=== PATIENT | male | born 1990 | race Caucasian/White ===

== ENCOUNTER 2022-07-13 06:48 | Day surgery (SDC) | payer OTHER ==
[~2022-07-13] VITALS: Ht 177.8 cm; Wt 74.8 kg
[~2022-07-13 06:48] MED LIST: TAMS-11 PO
[2022-07-13] MEDS ORDERED: LACTATED RINGERS 1,000 ML IV SCH (07:00)
[2022-07-13] MEDS ORDERED: DEXAMETHASONE 4MG/ML 1ML VIAL ONE ×2 (08:47→10:36)
[2022-07-13] MEDS ORDERED: METOCLOPRAMIDE HCL 10MG/2ML VIAL ONE (08:47)
[2022-07-13] MEDS ORDERED: ONDANSETRON HCL 4MG/2ML INJ ONE (08:47)
[2022-07-13] MEDS ORDERED: LIDOCAINE HCL 1% 20ML VIAL (Pyxis) INJ ONE (08:48)
[2022-07-13] MEDS ORDERED: FENTANYL CITRATE/PF 50MCG/ML 2ML VIAL ONE (08:48)
[2022-07-13] MEDS ORDERED: MIDAZOLAM HCL 2 MG/2 ML VIAL ONE (08:48)
[2022-07-13] MEDS ORDERED: PROPOFOL 200MG/20ML VIAL IV ONE (08:48)
[2022-07-13] MEDS ORDERED: CEFAZOLIN SODIUM 1000MG/VIAL ONE (09:55)
[2022-07-13] MEDS ORDERED: SUCCINYLCHOLINE CHLORIDE 200MG/10ML IV ONE (09:55)
[2022-07-13] MEDS ORDERED: KETOROLAC 30MG/ML VIAL ONE (09:55)
[2022-07-13] MEDS ORDERED: KETOROLAC 10MG TABLET PO NR (11:00)
[2022-07-20 15:11] LABS: CALCULI SIZE 3x3 mm
[2022-07-20 15:12] LABS: CALCULI WEIGHT 13 mg
[2022-07-20 15:13] LABS: CALC OXALATE DIHYDRATE 40 %; CALC OXALATE MONOHYDRATE 60 %
== END 2022-07-13 11:40 | disposition home or self-care (01) ==
LOC: OR 06:48
PROVIDERS: ATTEND Urology
DX: N13.2 Hydronephrosis with renal and ureteral calculous obstruction (principal); F17.210 Nicotine dependence, cigarettes, uncomplicated; Z79.899 Other long term (current) drug therapy; Z98.890 Other specified postprocedural states; Z20.822 Contact with and (suspected) exposure to COVID-19
CPT/HCPCS: 52353; 74018; 82360; 87426; 88300; 93005; C1769; C9803; J0330; J0690; J1100; J1885; J2250; J2405; J2704; J2765; J3010; J3490; Z7610; 76000